=== PATIENT | female | born 1980 | race African-American/Black ===

== ENCOUNTER 2021-02-11 10:58 | Emergency (ER) | payer MEDICAID ==
[~2021-02-11] VITALS: Ht 157.5 cm; Wt 55.0 kg
[2021-02-11 10:59] VITALS: BP 139/88
[2021-02-11] MEDS ORDERED: LACO200T2 PO (11:08)
[2021-02-11] MEDS ORDERED: KEPP500 PO (11:08)
[2021-02-11] MEDS ORDERED: TIZA4CAP6 PO (11:08)
[2021-02-11] MEDS ORDERED: HYDR-4009 PO (11:08)
[2021-02-11] MEDS ORDERED: GABA300S PO (11:08)
[2021-02-11] MEDS ORDERED: AMIT-187 GT (11:08)
[2021-02-11] MEDS ORDERED: ASPIRIN 81MG TABLET PO ONE (11:15)
[2021-02-11] MEDS ORDERED: NITROGLYCERIN 0.4MG TABLET SL SL PRN (11:15)
[2021-02-11 11:56] LABS: BASOPHILS % 0.7 % (0.0-2.0); EOSINOPHILS % 0.8 % (0.0-5.0); HEMATOCRIT. 40.9 % (36.0-48.0); LYMPHOCYTES % 33.1 % (20.0-50.0); MEAN CORPUSCULAR HEMOGLOBIN 26.9 pg (28.0-32.0); MEAN CORPUSCULAR VOLUME 84.8 fL (81.0-99.0); MEAN PLATELET VOLUME 7.8 fl (7.4-10.4); MONOCYTES % 6.3 % (2.0-8.0); NEUTROPHILS % 59.1 % (40.0-76.0); PLATELET 274 x1000/uL (130-400); RED BLOOD CELL COUNT 4.83 mill/uL (4.2-5.4); RED CELL DISTRIBUTION WIDTH 14.1 % (11.6-14.6)
[2021-02-11 12:03] LABS: CHLORIDE 108 mEq/L (98-107)
[2021-02-11 15:48] LABS: CLARITY URINE CLEAR (CLEAR); COLOR URINE DARK YELLOW (YELLOW); KETONES URINE TRACE (NEGATIVE); LEUKOCYTE ESTERASE URINE TRACE (NEGATIVE); NITRITE URINE NEGATIVE (NEGATIVE); OCCULT BLOOD URINE NEGATIVE (NEGATIVE); PH URINE 6.5 (4.5-8.0); PROTEIN URINE NEGATIVE (NEGATIVE); SPECIFIC GRAVITY URINE 1.025 (1.005-1.030)
[2021-02-11 16:35] LABS: *BARBITURATES SCREEN URINE NEGATIVE (NEGATIVE)
[2021-02-11 16:36] LABS: *AMPHETAMINES SCREEN URINE NEGATIVE (NEGATIVE); *BENZODIAZEPINES SCREEN URINE NEGATIVE (NEGATIVE); *COCAINE SCREEN URINE NEGATIVE (NEGATIVE); CANNABINOID URINE SCREEN NEGATIVE (NEGATIVE); METHADONE URINE SCREEN NEGATIVE (NEGATIVE); OPIATES URINE SCREEN NEGATIVE (NEGATIVE)
[2021-02-11 16:38] LABS: PHENCYCLIDINE URINE SCREEN NEGATIVE (NEGATIVE)
== END 2021-02-11 15:57 | disposition home or self-care (01) ==
LOC: ER 10:58
DX: R07.89 Other chest pain (principal); Z98.890 Other specified postprocedural states; Z86.59 Personal history of other mental and behavioral disorders
CPT/HCPCS: 36415; 71045; 80053; 80305; 81003; 83880; 84484; 85025; 93005; 99285; Z7610

== ENCOUNTER 2021-08-24 12:54 | Emergency (ER) | payer MEDICAID ==
[~2021-08-24] VITALS: Ht 154.9 cm; Wt 46.0 kg
[~2021-08-24 12:54] MED LIST: AMIT-187 GT; GABA300S PO; HYDR-4009 PO; KEPP500 PO; LACO200T2 PO; TIZA4CAP6 PO
[2021-08-24 19:55] VITALS: BP 110/78
== END 2021-08-24 20:20 | disposition home or self-care (01) ==
LOC: ER 14:04
DX: R51.9 Headache, unspecified (principal); Z98.890 Other specified postprocedural states; Z79.899 Other long term (current) drug therapy
CPT/HCPCS: 99284